=== PATIENT | male | born 1945 | race Caucasian/White ===

== ENCOUNTER → 2016-06-24 | Outpatient (CLI) | payer MEDICARE, OTHER ==
--- NOTE | 2016-06-24 14:29 | US ---
EXAM DESCRIPTION: Abdomen,Complete CLINICAL HISTORY: LIVER CYST COMPARISON: April 08, 2015 FINDINGS: Aorta: Nonaneurysmal. IVC: Visualized portions normal. Ascites: None. Pancreas: Partially obscured by overlying bowel gas but visualized portions normal. Liver: No suspicious mass, hepatomegaly or biliary duct dilation. Incidentally noted are a few tiny hepatic cysts. Gallbladder/Common Duct: No stones, wall thickening, pericholecystic fluid or common duct dilation. Right Kidney: No stones, hydronephrosis, atrophy or mass. Spleen: No splenomegaly or mass. Left Kidney: No stones, hydronephrosis, atrophy or mass. IMPRESSION: Negative exam. Electronically signed by: Chay Martinez MD 06/24/2016 2:28 PM [employer]
== END | disposition home or self-care (01) ==
LOC: US 10:28
PROVIDERS: ATTEND Internal Medicine Gastroenterology
DX: K51.90 Ulcerative colitis, unspecified, without complications (principal); K76.89 Other specified diseases of liver

== ENCOUNTER → 2016-07-20 | Outpatient (CLI) | payer MEDICARE, OTHER ==
--- NOTE | 2016-07-20 13:36 | CT ---
Study: CT Chest. Indication: SOLITARY PULMONARY NODULE Technique: CT imaging of the chest obtained after intravenous administration of contrast. Comparison: CT left shoulder July 08, 2016. Findings: Heart size normal. No pathologically enlarged mediastinal or hilar lymphadenopathy. Two hepatic cysts measuring up to 10 mm. No acute osseous abnormality. Remote left clavicular fracture. 5 mm noncalcified left lower lobe pulmonary nodule on image 38. No consolidation, pleural effusion, or pneumothorax. Impression: 5 mm noncalcified left lower lobe pulmonary nodule. Follow-up CT chest in one year recommended. Electronically signed by: Gary Hayden MD 07/20/2016 1:35 PM CDT
== END | disposition home or self-care (01) ==
LOC: CT 08:48
PROVIDERS: ATTEND Family Medicine
DX: R91.1 Solitary pulmonary nodule (principal)

== ENCOUNTER 2016-12-08 05:53 | Day surgery (SDC) | payer MEDICARE, OTHER ==
--- NOTE | 2016-12-07 14:12 | RAD ---
Study: Frontal and Lateral Views of the Chest. Indication: pre op Comparison: None. IMPRESSION: The cardiomediastinal silhouette is normal. Lung apices not included in their entirety within the field of view on the frontal image. The lungs are clear without consolidation, pleural effusion, or pneumothorax. Left shoulder arthroplasty noted. Electronically signed by: Gary Hayden MD 12/07/2016 2:10 PM CDT
[2016-12-08] MEDS ORDERED: PROPOFOL 200 MG/20 ML VIAL IV ONE (07:00)
[2016-12-08] MEDS ORDERED: DEXAMETHASONE INJ 10 MG/ML VIAL ONE (07:00)
[2016-12-08] MEDS ORDERED: ONDANSETRON INJ 4 MG/2 ML VIAL ONE (07:00)
[2016-12-08] MEDS ORDERED: METOCLOPRAMIDE HCL INJ 10 MG/2 ML VIAL ONE (07:00)
[2016-12-08] MEDS ORDERED: LIDOCAINE 1% 10 ML VIAL INJ ONE (07:00)
[2016-12-08] MEDS ORDERED: SODIUM CHL 0.9% 100ML MINI-BAG 100 ML IVPB ONE (07:48)
[2016-12-08] MEDS ORDERED: LACTATED RINGERS 1,000 ML ONE (07:48)
[2016-12-08] MEDS ORDERED: ceFAZolin SODIUM 1 GM VIAL ONE (07:48)
[2016-12-08] MEDS ORDERED: fentaNYL CITRATE INJ 50 MCG/ML AMP ONE (08:15)
[2016-12-08] MEDS ORDERED: ROCURONIUM BROMIDE 10 MG/ML VIAL ONE (08:16)
[2016-12-08] MEDS ORDERED: BUPIVACAINE 0.25% W/EPI 50 ML VIAL INJ ONE (08:30)
--- NOTE | 2016-12-08 13:09 | OP ---
DATE OF PROCEDURE: 12/08/16 PREOPERATIVE DIAGNOSIS: 1. Reducible left inguinal hernia. POSTOPERATIVE DIAGNOSIS: 1. Reducible left inguinal hernia, indirect. PROCEDURE: 1. Repair of left inguinal hernia with Surgimesh graft. SURGEON: Ochoa Murphy MD. GROUNDWATER MONITORING TECHNICIAN: None. ANESTHESIA: General endotracheal anesthesia and local infiltration of 0.25% Marcaine with epinephrine. INDICATION: The patient is a 71-year-old male who has had a mass in his left groin for a year or so. It has gotten somewhat more uncomfortable and after the risks, benefits and alternatives to the procedure were discussed and accepted, the patient was brought to the Surgical Suite today for elective herniorrhaphy. FINDINGS: The patient had an indirect hernia with a sliding component. There was mild weakness in the floor of the canal, but no herniation. PROCEDURE: After adequate general endotracheal anesthesia was obtained, the patient was prepped and draped in the usual sterile manner. At this point, a surgical time-out was taken. The patient had been given 2 grams of IV Ancef. An oblique incision was fashioned in the left groin, first with infiltration of anesthesia, then with a sharp knife. Dissection was carried down through the skin and subcutaneous tissue to the external oblique fascia using electrocautery and blunt dissection. The self-retaining retractor was placed at this level. The external oblique fascia was then opened in the direction of the fibers through the external ring and dissected free from the floor of the canal. The self-retaining retractor was placed at this level. When this was done, the cord was dissected free from the floor of the canal using blunt dissection. A half inch Rincon drain was placed under it for traction. At this point, the floor of the canal was inspected with no hernia noted. The cord was then explored. Two cord lipomas were excised using electrocautery and ligatures of 3-0 Vicryl. The hernia sac identified and dissected free down to the level of the internal inguinal ring. It was then reduced below the floor of the canal. At this point, a Surgimesh patch was introduced under the floor of the canal and sutured circumferentially with interrupted 2-0 Vicryl simple sutures. When this was done, the second patch was fashioned and was sutured around the cord on the floor of the canal in the usual manner with interrupted 2 -0 Vicryl sutures. When this was done, the wound was irrigated copiously with saline. The effluent was noted to be clear. There was no obvious bleeding at this point. The external oblique fascia was then closed with running 3-0 Vicryl suture. The cord and subcutaneous tissues above, below and lateral to the incision were infiltrated with local anesthesia. The Miranda's fascia was approximated with interrupted 3-0 Chromic suture. Skin edges were approximated with skin stapler. Sterile pressure dressing was applied. The scrotum was checked for position of the testicle. The patient was awakened and taken to the Recovery Room in good and stable condition. Estimated blood loss was approximately 50 mL. All sponge, needle and instrument counts were correct. #[id number] [facility]
[2016-12-08] MEDS ORDERED: HYDROcodone 5MG/APAP 325MG 1 EA TAB ONE (13:51)
[2016-12-08 14:59] VITALS: BP 134/84; TEMP 97.1; O2SAT 95
== END 2016-12-08 14:45 | disposition home or self-care (01) ==
LOC: AMB 05:53
PROVIDERS: ATTEND Surgery
DX: K40.90 Unilateral inguinal hernia, without obstruction or gangrene, not specified as recurrent (principal); K51.90 Ulcerative colitis, unspecified, without complications; K21.9 Gastro-esophageal reflux disease without esophagitis; E78.5 Hyperlipidemia, unspecified; N40.0 Benign prostatic hyperplasia without lower urinary tract symptoms; G47.30 Sleep apnea, unspecified; R06.83 Snoring; Z96.612 Presence of left artificial shoulder joint; Z87.891 Personal history of nicotine dependence; Z79.82 Long term (current) use of aspirin; Z79.899 Other long term (current) drug therapy
CPT/HCPCS: 00830; 36415; 49505; 71020; 80048; 81001; 85025; 93005; J0690; J1100; J2405; J2765; J3010; J3490; J7050; J7120

== ENCOUNTER → 2017-01-24 | Outpatient (CLI) | payer MEDICARE, OTHER ==
--- NOTE | 2017-01-24 11:32 | CT ---
EXAM DESCRIPTION: Chest w/o Contrast CLINICAL HISTORY: PULMONARY NODULE COMPARISON: CT scan of the chest July 20, 2016. TECHNIQUE: Spiral-axial scans at 5.0 mm intervals through the lungs and thorax without IV contrast. 2.5 mm lung algorithm axial reconstructions. Coronal and sagittal 2.0 Mm reconstructions. Total Exam DLP: 501.83 mGy-cm. This exam was performed according to our departmental dose-optimization program which includes automated exposure control, adjustment of the mA and/or kV according to patient size and/or use of iterative reconstruction technique; to reduce radiation dose to as low as reasonably achievable (ALARA). FINDINGS: Again noted is a 5.3 mm nodule in the base of the superior segment of the left upper lobe and less than 2 cm from the posterior pleura (series 4, image 78). No change in smooth borders. Smooth bordered pleural-based lesion abutting the posterior pleura measuring 4.7 mm diameter is also stable (image 97). No pleural effusion or pneumothorax bilaterally. No new abnormal nodules in the right lung. No infiltrates or masses bilaterally. Heterogeneous density in the thyroid gland. No mediastinal or hilar enlarged lymph nodes. No axillary adenopathy. Minimal coronary artery calcifications. No subdiaphragmatic fluid or free air in the included peritoneal space. Stable cysts in the left lobe of the liver. Included spleen and adrenal glands are unremarkable. IMPRESSION: 1. Stable left lower lobe nodule and stable pleural-based nodule abutting the left lower lobe since June 2016. The pulmonary nodule is less than 6 mm. If this patient is high risk for pulmonary disease/cancer development, consider follow-up CT scan in 12 month interval, according to [facility] Best Practice guidelines, utilizing 2017 Fleischner Society recommendations for solitary pulmonary nodules. Please see below.* 2. No axillary mediastinal or hilar adenopathy. Stable cysts in the left lobe of the liver. *2017 Fleischner Society Recommendations for Single Solid Lung Nodule Follow-Up based on size (average of long- and short-axis diameters) <6 mm Low-Risk Patient: No routine follow-up <6 mm High-Risk Patient: Optional CT at 12 months 6-8 mm Low-Risk Patient: CT at 6-[address] at 18-24 months 6-8 mm High-Risk Patient: CT at 6-[address] at 18-24 months >8 mm Low-Risk Patient: Consider CT, PET/CT or tissue sampling at 3 months >8 mm High-Risk Patient: Same as for low-risk patient Electronically signed by: Davide Barakat MD 01/24/2017 11:31 AM CDT
== END | disposition home or self-care (01) ==
LOC: CT 11:44
PROVIDERS: ATTEND Family Medicine
DX: R91.1 Solitary pulmonary nodule (principal)

== ENCOUNTER → 2017-08-09 | Outpatient (CLI) | payer MEDICARE, OTHER | LOC: GMAJ 13:47 | PROVIDERS: ATTEND Family Medicine | DX: Z12.5 Encounter for screening for malignant neoplasm of prostate (principal) ==

== ENCOUNTER → 2018-05-10 | Outpatient (CLI) | payer MEDICARE, OTHER ==
--- NOTE | 2018-05-10 11:30 | CT ---
EXAM DESCRIPTION: Chest w/o Contrast CLINICAL HISTORY: 72 years Male, PULMONARY NODULE COMPARISON: CT sinus 01/24/2017 and 07/20/2016. TECHNIQUE: CT images through the chest without IV contrast. Multiplanar reformations were provided. This exam was performed according to our departmental dose-optimization program, which includes automated exposure control, adjustment of the mA and/or kV according to patient size and/or use of iterative reconstruction technique. CT CHEST FINDINGS: Heart and mediastinum: Heart is normal size. No pericardial effusion. No significant atherosclerosis. Small hiatal hernia is present. Esophagus is nondilated. No pathologically enlarged mediastinal lymph nodes. Evaluation for hilar lymphadenopathy limited without intravenous contrast. Thyroid Gland: Normal. Lungs: Stable 5 mm solid round pulmonary nodule in left lower lobe on image 69. Stable solid pleural adjacent 4 mm pulmonary nodule in the posterior lateral left lower lobe on image 87. Airways: No filling defects or bronchiectasis. Pleura: No effusion or pneumothorax. Subphrenic Structures: Stable hypodensities within the liver measuring up to 1.5 cm likely representing cysts or hemangiomas. Musculoskeletal and Soft Tissues: No acute fracture or aggressive appearing osseous lesion. Reverse total left shoulder arthroplasty observed. Mild left greater than right gynecomastia. IMPRESSION: 1. No acute abnormality of the chest. 2. Stable 5 mm and 4 mm left lower lobe pulmonary nodules as detailed above. These are unchanged since 07/20/2016. Given greater than twelve-month stability as per guidelines below, no further follow-up is recommended. Multiple Solid lung nodules < 6 mm: Follow up management based on most suspicious nodule. In a low-risk patient, no routine follow-up imaging is recommended. In a high-risk patient, a non-contrast Chest CT at 12 months is optional. If performed and the nodule is stable at 12 months, no further follow-up is recommended. These guidelines do not apply to patients younger than 35 years, immunocompromised patients, and patients with cancer. F/u in patients with significant comorbidities as clinically warranted. For lung cancer screening, adhere to Lung-RADS guidelines. Reference: Radiology. 2017 Oct; 284(1):228-57 Electronically signed by: Dakota Lomeli MD 05/10/2018 11:29 AM [facility]
== END ==
LOC: CT 11:00
PROVIDERS: ATTEND Internal Medicine Pulmonary Disease
DX: R91.1 Solitary pulmonary nodule (principal)

== ENCOUNTER 2018-07-08 09:47 | Emergency (ER) | payer MEDICARE, OTHER ==
[2018-07-08 10:17] VITALS: TEMP 99.1
--- NOTE | 2018-07-08 10:42 | ED.PDOC ---
History of Present Illness - General Chief Complaint: Cardiovascular Problem Stated Complaint: Palpitations, elevated BP Time Seen by Provider: 07/08/18 09:54 Source: patient Exam Limitations: no limitations - History of Present Illness Initial Comments: Schuyler Gonzalez 72 y/o male stated that for the last 3 days his blood pressure been elevate BP 140/70;HR.90 denies chest pains,dizziness passing out.Has history of UC on medication. Timing/Duration: other - 3 days Severity: moderate Improving Factors: rest Worsening Factors: nothing Associated Symptoms: denies symptoms Allergies/Adverse Reactions: Allergies NO KNOWN ALLERGY Allergy (Verified 07/08/18 10:03) Home Medications: Ambulatory Orders Aspirin [(None)] 81 mg PO DAILY 10/14/15 Balsalazide Disodium 2,250 mg PO BID 10/14/15 Pantoprazole Tablet [Protonix] 40 mg PO BID 10/14/15 Rosuvastatin Calcium [Crestor] 10 mg PO BEDTIME 10/14/15 Amlodipine Besylate 10 mg PO DAILY #30 tab 07/08/18 Azathioprine [Imuran] 50 mg PO DAILY 07/08/18 Review of Systems - Review of Systems Constitutional: States: no symptoms reported EENTM: States: no symptoms reported Respiratory: States: no symptoms reported Cardiology: States: no symptoms reported Gastrointestinal/Abdominal: States: no symptoms reported Genitourinary: States: no symptoms reported All other Systems: Reviewed and Negative, No Change from Baseline Past Medical History (General) - Patient Medical History Hx Stroke: No Hx Cardiac Disorders: Yes - Hypercholesterolemia Hx Congestive Heart Failure: No Hx Diabetes: No Hx Gastroesophageal Reflux: Yes Hx Cancer: Yes - Skin Hx MRSA: No Hx Other PMH: Yes - ulcerative colitis Surgical History: tonsillectomy, other - shoulder,rotaror cuff,hernia repair - Vaccination History Hx Influenza Vaccination: Yes - 2018 Hx Pneumococcal Vaccination: Yes - Social History Hx Tobacco Use: No Hx Alcohol Use: Yes - Rare Hx Physical Abuse: No Hx Emotional Abuse: No Family Medical History - Family History Father Family History: No Known Living Status: Still Living Hx Family;Other: Parkinsons -mom Physical Exam - Physical Exam General Appearance: Alert, Comfortable, No apparent distress Eye Exam: bilateral normal Ears, Nose, Throat: hearing grossly normal, normal ENT inspection, normal pharynx Neck: full range of motion, supple, normal inspection Respiratory: lungs clear, normal breath sounds Cardiovascular/Chest: normal peripheral pulses, regular rate, rhythm, no murmur Gastrointestinal/Abdominal: non tender, soft, no organomegaly Back Exam: no CVA tenderness, no vertebral tenderness Extremity: no pedal edema, no calf tenderness Neurologic: alert, oriented x 3 Skin Exam: normal color, warm/dry Lymphatic: no adenopathy Progress - Progress Progress: 07/08/18 10:45 07/08/18 10:21 EKG Assessment ONCE 07/08/18 10:30 EKG STAT Vital Signs 07/08/18 09:47 Temperature 99.1 F Pulse Rate [ 89 Apical] Respiratory 20 Rate Blood Pressure 131/87 [Left Arm] O2 Sat by Pulse 98 Oximetry - EKG/XRAY/CT EKG: Sinus, no ST T wave changes Comments: HR-90 NSR Departure - Departure Clinical Impression: Heart palpitations High blood pressure Qualifiers: Hypertension type: unspecified Qualified Code(s): I10 - Essential (primary) hypertension Time of Disposition: 10:46 Disposition: Discharge to Home or Self Care Condition: Fair Departure Forms: ED Discharge - Pt. Copy, Patient Portal Self Enrollment Instructions: High Blood Pressure (DC), DASH Diet, High Blood Pressure in Adults, Palpitations (DC), Palpitations Referrals: Wyatt Artis MD [Primary Care Provider] - 1-2 Weeks Prescriptions: Amlodipine Besylate 10 mg PO DAILY #30 tab Home Medications: Ambulatory Orders Aspirin [(None)] 81 mg PO DAILY 10/14/15 Balsalazide Disodium 2,250 mg PO BID 10/14/15 Pantoprazole Tablet [Protonix] 40 mg PO BID 10/14/15 Rosuvastatin Calcium [Crestor] 10 mg PO BEDTIME 10/14/15 Amlodipine Besylate 10 mg PO DAILY #30 tab 07/08/18 Azathioprine [Imuran] 50 mg PO DAILY 07/08/18 Additional Instructions: Return to Emergency room as needed;Follow up with Dr. Artis for recheck;Continue with all home medications
[2018-07-08 11:02] VITALS: BP 131/77; O2SAT 94
== END 2018-07-08 11:02 | disposition home or self-care (01) ==
LOC: ER 09:47
DX: I10 Essential (primary) hypertension (principal); R00.2 Palpitations; E78.00 Pure hypercholesterolemia, unspecified; K21.9 Gastro-esophageal reflux disease without esophagitis; Z79.82 Long term (current) use of aspirin; Z79.899 Other long term (current) drug therapy; Z85.828 Personal history of other malignant neoplasm of skin

== ENCOUNTER → 2019-06-12 | Outpatient (CLI) | payer MEDICARE, OTHER ==
--- NOTE | 2019-06-13 21:04 | US ---
EXAM DESCRIPTION: Venous,Lower Extremity LT: ULTRASOUND. CLINICAL HISTORY: DEEP VEIN THROMBOSIS COMPARISON: None Available. TECHNIQUE: Ricketts-scale and doppler sonographic evaluation of the deep venous system of the left lower extremity. FINDINGS: Doppler evaluation shows normal color flow and normal phasicity and augmentation of the left common femoral vein, femoral vein, popliteal vein, greater saphenous vein, junction with the CFV. Also normal color flow and normal phasicity and augmentation of the peroneal, and posterior tibial vein. The left lower extremity deep veins were completely compressible; normal occlusion with transducer pressure. Ricketts-scale survey showed no echogenic thrombus within these veins. Superficial vein on the lateral calf contains echogenic material and is not compressible with the transducer. No color flow demonstrated. IMPRESSION: 1. Duplex ultrasound evaluation of the left lower extremity deep venous system showing no evidence of thrombosis. 2. Superficial vein on the lateral left calf contains thrombus. Electronically signed by: Davide Barakat MD 06/13/2019 9:02 PM [employer]
== END ==
LOC: US 10:28
DX: I82.812 Embolism and thrombosis of superficial veins of left lower extremity (principal)

== ENCOUNTER → 2020-05-15 | Outpatient (CLI) | payer MEDICARE, OTHER | LOC: GMAJ 12:09 | PROVIDERS: ATTEND Family Medicine | DX: N40.1 Benign prostatic hyperplasia with lower urinary tract symptoms (principal); E78.00 Pure hypercholesterolemia, unspecified ==